=== PATIENT | female | born 1960 | race Caucasian/White ===

== ENCOUNTER 2016-10-25 05:57 | Day surgery (SDC) | payer OTHER ==
[2016-10-25] MEDS ORDERED: LR 1,000 ML ONE (06:10)
[2016-10-25] MEDS ORDERED: KEFZOL 1 GM/D5W 50 ML ONE (06:10)
[2016-10-25] MEDS ORDERED: XYLOCAINE 1%/EPI 1:100,000 ONE (06:23)
[2016-10-25] MEDS ORDERED: FENTANYL ONE (08:37)
[2016-10-25] MEDS ORDERED: VERSED ONE ×2 (08:38→08:40)
[2016-10-25] MEDS ORDERED: DIPRIVAN 1% ONE ×2 (08:38→08:39)
[2016-10-25 08:54] VITALS: BP 123/68
[2016-10-25] MEDS ORDERED: ZOFRAN ONE (09:35)
[2016-10-25] MEDS ORDERED: XYLOCAINE-MPF 2% ONE (09:36)
--- NOTE | 2016-10-25 11:40 | OPERATIVE NOTE ---
PROCEDURE DATE: 10/25/2016 PROCEDURE PERFORMED: Excision of benign lesion from the forehead. SURGEON: Hayder Ramirez MD ICD 10 DIAGNOSIS CODE: D23.30, benign lesion. CPT CODE: 34690 - Excision of benign lesion from the forehead. INDICATIONS FOR PROCEDURE: This patient is a 56-year-old white female who has a problem with getting psoriasis plaques on her skin throughout her body, which become nonhealing, annoying wounds. She now has 1 on her face in her mid forehead that has been there for many months. It is dry, excoriated, and nonhealing. She needs excision of this lesion. DESCRIPTION OF PROCEDURE: The patient was brought to the operating room after she was marked in outpatient surgery. She was given sedation and then she was infiltrated with 1% Xylocaine with epinephrine. She was prepped and draped. A horizontal elliptical excision was made around the lesion that followed her natural skin tension lines. This was cut with a 15 blade and then dissected off of the forehead at the level of the subcutaneous tissue with tenotomy scissors. The edges were undermined to facilitate flap closure. Hemostasis was achieved with electrocautery. She was closed with 5-0 Polysorb interrupted deep dermal sutures, which included the layer of subcutaneous tissue and then some additional 6-0 Polysorb deep dermal sutures, followed by a running 6-0 nylon stitch. She tolerated the procedure well and was transported to the outpatient surgery area in good condition.
== END 2016-10-25 09:15 | disposition home or self-care (01) ==
LOC: OR 05:57
PROVIDERS: ATTEND Surgery Plastic and Reconstructive Surgery
DX: C44.319 Basal cell carcinoma of skin of other parts of face (principal); I10 Essential (primary) hypertension
CPT/HCPCS: 88305; 88313; J0690; J2250; J2405; J3010; J7120

== ENCOUNTER 2019-06-29 03:14 | Inpatient (IN) ==
--- NOTE | 2019-06-23 17:46 | EKG Report ---
Test Performed on : 06/23/2019 5:42:43 PM Test Reason : PAT Blood Pressure : / mmHG Vent. Rate : 072 BPM Atrial Rate : 072 BPM P-R Int : 200 ms QRS Dur : 086 ms QT Int : 402 ms P-R-T Axes : 032 020 024 degrees QTc Int : 440 ms Normal sinus rhythm. Normal ECG When compared with ECG of 26-FEB-2014 10:56, No significant change was found Confirmed by Yovani CHACON, Oniel Ramsay ([id number]) on 06/24/2019 7:45:16 AM
[2019-06-23 18:21] LABS: URINE SOURCE CLEAN CATCH
[2019-06-23 18:28] LABS: BASO# 0.02 X1000 (0.0-0.2); BASO% 0.4 % (0.0-0.8); EOS# 0.12 X1000 (0.0-0.7); EOS% 2.2 % (0.0-10.0); HEMATOCRIT 39.5 % (37.0-47.0); HEMOGLOBIN 12.8 g/dL (12.0-16.0); LYMPH# 1.88 X1000 (1.2-3.4); LYMPH% 34.3 % (20.5-51.1); MCH 30.6 PG (27-31); MCHC 32.4 g/dL (33-37); MCV 94.5 FL (81-99); MONO# 0.55 X1000 (0.11-0.59); MPV 9.1 FL (7.4-10.4); NEUT# 2.91 X1000 (1.4-6.5); NEUT% 53.1 % (42.2-75.2); PLT 223 X1000 (130-400); RBC 4.18 XMIL (4.2-5.4); RDW 11.9 % (11.5-14.5); WBC 5.48 X1000 (4.8-10.8)
[2019-06-23 18:30] LABS: BILIRUBIN URINE NEGATIVE (NEGATIVE); BLOOD URINE NEGATIVE (NEGATIVE); COLOR STRAW; GLUCOSE URINE NEGATIVE (NEGATIVE); KETONE URINE NEGATIVE (NEGATIVE); LEUKOCYTES URINE NEGATIVE (NEGATIVE); NITRITE URINE NEGATIVE (NEGATIVE); PROTEIN URINE NEGATIVE (NEGATIVE); SP GRAVITY URINE 1.006; TURBIDITY URINE CLEAR (CLEAR); UROBILINOGEN URINE NORMAL (NORMAL)
[2019-06-23 18:35] LABS: UR EPITHELIAL CELLS <10 /HPF (<10); URINE BACTERIA NEGATIVE /HPF; URINE RBC <10 /HPF (<10); URINE WBC <10 /HPF (<10)
[2019-06-23 18:38] LABS: INR 0.91; PROTIME 12.4 Seconds (11.0-16.0); PTT 25.7 Seconds (22.3-41.8)
[2019-06-23 18:52] LABS: HEMOGLOBIN A1C 5.2 % (4.8-6.0)
[2019-06-23 21:46] LABS: AGAP 11; BUN 19 mg/dL (8-22); CALCIUM 8.7 mg/dL (8.8-10.2); CHLORIDE 100 mmol/L (98-107); COSMO 277; CREATININE 0.7 mg/dL (0.5-0.9); ESTIMATED GFR > 60; GLUCOSE 87 mg/dL (70-104); SODIUM 138 mmol/L (136-145); TCO2 27 mmol/L (25-35)
[2019-06-29] MEDS ORDERED: COLACE ONE (06:23)
[2019-06-29] MEDS ORDERED: CELEBREX ONE (06:24)
[2019-06-29] MEDS ORDERED: LYRICA ONE (06:24)
[2019-06-29] MEDS ORDERED: PEPCID ONE (06:24)
[2019-06-29] MEDS ORDERED: REGLAN ONE (06:24)
[2019-06-29] MEDS ORDERED: LR 1,000 ML ONE (06:24)
[2019-06-29] MEDS ORDERED: KEFZOL 1 GM/D5W 1 GM/50 ML IVPB ONE (06:24)
[2019-06-29] MEDS ORDERED: DIPRIVAN 1% ONE ×2 (06:38→08:13)
[2019-06-29] MEDS ORDERED: FENTANYL ONE (06:38)
[2019-06-29] MEDS ORDERED: ROBINUL ONE (06:39)
[2019-06-29] MEDS ORDERED: XYLOCAINE-MPF 2% ONE (06:39)
[2019-06-29] MEDS ORDERED: CYKLOKAPRON 1,000 MG/NS 1,000 MG/100 ML IVPB ONE (06:53)
[2019-06-29] MEDS ORDERED: SODIUM CHLORIDE 0.9% ONE (06:53)
[2019-06-29] MEDS ORDERED: TORADOL ONE (06:53)
[2019-06-29] MEDS ORDERED: DURAMORPH ONE (06:53)
[2019-06-29] MEDS ORDERED: MARCAINE 0.25% PF ONE (06:53)
[2019-06-29] MEDS ORDERED: EXPAREL 1.3% ONE (06:54)
[2019-06-29] MEDS ORDERED: OFIRMEV 1000 MG/ISOTONIC SOLN 1,000 MG/100 ML BOTTLE ONE (08:00)
[2019-06-29] MEDS ORDERED: DECADRON ONE (08:00)
[2019-06-29] MEDS ORDERED: NS 1,000 ML ONE (09:31)
[2019-06-29] MEDS ORDERED: ZOFRAN ONE (10:11)
[2019-06-29] MEDS ORDERED: ZOFRAN ODT PO PRN (11:00)
[2019-06-29] MEDS ORDERED: OXY IR PO PRN (11:00)
[2019-06-29] MEDS ORDERED: ZOFRAN IV PRN (11:00)
[2019-06-29] MEDS ORDERED: MORPHINE IV PRN ×3 (11:00)
[2019-06-29] MEDS ORDERED: CYKLOKAPRON 1,000 MG in NS 100 ML IV ONE (13:40)
--- NOTE | 2019-06-29 14:33 | OPERATIVE NOTE ---
PROCEDURE DATE: 06/29/2019 PREOPERATIVE DIAGNOSIS: Avascular necrosis, left hip. POSTOPERATIVE DIAGNOSIS: Avascular necrosis, left hip. PROCEDURE PERFORMED: Left anterior hip replacement. SURGEON: John Hoang MD. CLINICAL EDUCATION ASSISTANT: RAFAEL Bay. Ms. Velarde was necessary for proper retraction and manipulation during the case. ANESTHESIA: Spinal. COMPLICATIONS: None. DESCRIPTION OF PROCEDURE IN DETAIL: A 58-year-old female who presents for a left anterior hip replacement. Risks, benefits, and no guarantees were discussed, and she is willing to proceed. She was taken to the operating room and satisfactory anesthesia obtained. She was placed on the [place] table. The left hip was prepped and draped in the usual sterile fashion. A time-out was taken to confirm operative site, procedure, and patient. The anterior approach to the left hip was undertaken with the incision starting 1 cm distal and lateral to the anterior-superior iliac spine, and carried down the anterolateral thigh for 10 cm. Dissection was carried down through the subcutaneous fat to the tensor fascia henri which was split in line with the incision. Blunt dissection along the inner membrane of the tensor fascia was undertaken down to the anterior hip capsule. Cobra retractors were placed over the superior and inferior aspects of the femoral neck and a capsulotomy incision made to expose the femoral head. At this point, the C-arm was used to establish an AP pelvis for leg length referencing prior to the osteotomy. An osteotomy was made in the femoral neck roughly 10 mm above the lesser trochanter. The femoral head was removed and noted to have avascular necrosis with collapse of the femoral head and subchondral bone. A very small Cobra retractor was carefully placed directly on the anterior acetabular bone to prevent injury to the femoral nerve and anterior vascular structures. Sequential reaming of the acetabulum was undertaken up to a 51 reamer. Good corticocancellous bone was noted in the acetabulum. A DePuy Gription 52 outer diameter cup was then impacted into the acetabulum in 45 degrees of abduction and 10 to 15 degrees of anteversion with secure press-fit fixation. An additional 25 length screw was placed in the 12 o'clock position of the cup for additional fixation. A 36 mm inner diameter, 0 degree polyethylene bearing was impacted into the cup with secure fixation. The bearing-cup interface and cup-bone interface was examined and noted to be stable. Traction was released off the leg and the [place] table utilized to extend the hip and externally rotate it to facilitate broaching of the proximal femur. Sequential broaching of the femur was undertaken with the DePuy Actis stem up to a size 4 stem. A standard neck collar with a 1.5 neck taper revealed good stability and zoroastrian of leg lengths. The trial stem was removed and an Actis size 4 standard collar stem impacted in the proximal femur with secure axial and rotational stability. A ceramic 36 mm head with a 1.5 neck length was impacted onto this. The hip was reduced and the C-arm used to verify accurate geometry and placement of the components. The stability was assessed by flexing the hip and internally rotating it with no posterior instability and extending the hip with it externally rotated up to 70 degrees down to the floor without any anterior instability. The wound was copiously irrigated with irrigant. A Hemovac drain was placed. The joint capsule and skin were injected with Exparel for pain management. The fascia of the tensor was closed with a running V-Loc suture, the subcutaneous with 2-0 Vicryl, and the skin with a subcuticular 4-0 Monocryl type stitch. Steri-Strips and benzoin completed the closure with sterile bandages. She was recovered from anesthesia and transferred to the recovery room in stable condition. No intraoperative complications were noted. Instrument count and sponge count were correct at the time of closure. cc: Tello Hoang MD
[2019-06-29] MEDS: NS 1,000 ML IV SCH ×2 (14:35→18:45)
[2019-06-29] MEDS: TYLENOL PO SCH ×2 (15:20→20:57)
[2019-06-29] MEDS: ULTRAM PO SCH ×2 (15:20→20:56)
[2019-06-29] MEDS: KEFZOL 1 GM/D5W 1 GM/50 ML IVPB IV SCH ×2 (15:20→22:36)
--- NOTE | 2019-06-29 19:28 | ORTHOPAEDICS PROGRESS NOTE ---
DATE: 06/29/2019 SUBJECTIVE: Ms. Zelaya is seen status post anterior hip replacement. She is walking in the hallways with therapy currently. She reports her hip feels good, without significant discomfort. OBJECTIVE: She is able to flex at the hip as well as extend the knee and work the ankle up and down. There is no active bleeding. She has stable vital signs. ASSESSMENT AND PLAN: We will plan on discontinuing the drain and intravenous line, and discharging her home in the near future. cc: Tello Hoang MD
[2019-06-29] MEDS: PERIDEX MT SCH (20:56)
[2019-06-29] MEDS: COLACE PO SCH (20:56)
[2019-06-29] MEDS: CELEBREX PO SCH (20:57)
[2019-06-29] MEDS ORDERED: COZAAR PO SCH (21:00)
[2019-06-29] MEDS: OXY IR PO PRN (22:37)
[2019-06-30] MEDS: OXY IR PO PRN (01:30)
[2019-06-30] MEDS: ULTRAM PO SCH ×2 (02:46→09:19)
[2019-06-30] MEDS: TYLENOL PO SCH ×2 (02:46→09:14)
[2019-06-30 07:20] LABS: HEMATOCRIT 30.4 % (37.0-47.0); HEMOGLOBIN 9.5 g/dL (12.0-16.0)
[2019-06-30 07:33] VITALS: BP 100/52
[2019-06-30 07:44] LABS: AGAP 2; BUN 12 mg/dL (8-22); CALCIUM 8.5 mg/dL (8.8-10.2); CHLORIDE 103 mmol/L (98-107); COSMO 274; CREATININE 0.7 mg/dL (0.5-0.9); ESTIMATED GFR > 60; GLUCOSE 140 mg/dL (70-104); POTASSIUM 4.3 mmol/L (3.5-5.1); SODIUM 136 mmol/L (136-145); TCO2 31 mmol/L (25-35)
[2019-06-30] MEDS: NS 1,000 ML IV SCH (08:09)
[2019-06-30] MEDS ORDERED: PEPCID PO SCH (09:00)
[2019-06-30] MEDS ORDERED: THERA M PLUS PO SCH (09:00)
[2019-06-30] MEDS ORDERED: ASPIRIN PO SCH (09:00)
[2019-06-30] MEDS: COLACE PO SCH (09:14)
[2019-06-30] MEDS: CELEBREX PO SCH (09:14)
[2019-06-30] MEDS: PERIDEX MT SCH (09:14)
--- NOTE | 2019-06-30 11:52 | ORTHOPAEDICS PROGRESS NOTE ---
DATE: 06/30/2019 Ms. Ding was seen today status post hip replacement. She is afebrile with stable vital signs. She is mobilized with therapy. We will discontinue the IVs and drains this morning. She can be discharged home with home therapy. I will see her back in roughly 10 days. She can resume her home medicines including Rush as needed for pain, ibuprofen for pain, Bactrim for DVT prophylaxis, and aspirin 325 a day for DVT prophylaxis. cc: Tello Hoang MD
== END 2019-06-30 11:58 | disposition home health service (06) | DRG 470 ==
LOC: SURHOLD 03:14 → 4N 07:47
PROVIDERS: ADMIT Orthopaedic Surgery Adult Reconstructive Orthopaedic Surgery; ATTEND Orthopaedic Surgery Adult Reconstructive Orthopaedic Surgery